=== PATIENT | female | born 1955 | race Caucasian/White ===

== ENCOUNTER 2018-12-18 10:27 | Observation (INO) | payer MEDICARE, OTHER ==
[~2018-12-18] VITALS: Ht 154.9 cm; Wt 72.6 kg
[2018-12-18] MEDS ORDERED: PANTOPRAZOLE SO40 MG PO (16:48)
[2018-12-18] MEDS ORDERED: LISINOPRIL20 MG PO (16:50)
[2018-12-18] MEDS ORDERED: PAROXETINE HCL30 MG PO (16:51)
[2018-12-18] MEDS ORDERED: LEVOTHYROXINE125 MCG PO (16:51)
[2018-12-18] MEDS ORDERED: BASAGLAR K100 UNIT/1 SUB-Q (16:52)
[2018-12-18] MEDS ORDERED: MULTI-DAY PLUS1 EACH PO (16:54)
[2018-12-18] MEDS ORDERED: BUSPIRONE HCL5 MG PO (16:55)
[2018-12-18] MEDS ORDERED: METFORMIN HCL1000 M1 PO (16:56)
[2018-12-18] MEDS ORDERED: DULCOLAX10 MG PR (16:59)
[2018-12-18] MEDS ORDERED: TYLENOL325 MG PO (16:59)
[2018-12-18] MEDS ORDERED: FLEET ENEMA133 ML PR (17:00)
[2018-12-18] MEDS ORDERED: MILK OF MA400 MG/5 M PO (17:01)
--- NOTE | 2018-12-18 17:15 | NUR ---
PT ADMITTED AT 1440 HAD ULTRA SOUND ON CAROTID AND ECHOCARDIO GRAM RIGHT AWAY. ASSESSMENT COMPLETE UNDERGARMENTS CHANGED H2O PROVIDED. PT SWALLOWING WITH NO COUGHING, CHOKING, OR OTHER S/S OF DYSFUNCTION. PT DENIES PAIN OR NEEDS OF. STATES SHE WILL USE THE CALL LIGHT WHEN ASKED WHAT SHE WILL DO IF SHE NEEDS TO GET UP. BED ALARM SET ANYWAY.
--- NOTE | 2018-12-18 17:30 | NUR ---
In and spoke with Libra, she resides at [facility] for [facility]. She has small facial droop on the L, but is able to move L side. States she does not walk and uses a WC as her "legs don't work". Describes full care of dressing and self care by care givers at [facility]. Plans on returning to [facility] ond dc as she states, "It is my home". States her spouse passed 5 years ago, mom lives in the area.
--- NOTE | 2018-12-18 17:34 | NUR ---
PATIENT RESTING IN BED. VITAL SIGNS AND I&O DONE. CALL LIGHT WITHIN REACH. NO OTHER NEEDS AT THIS TIME
--- NOTE | 2018-12-18 20:02 | EKG ---
[facility] [address] [facility] [place] [address] Signed Normal sinus rhythm Voltage criteria for left ventricular hypertrophy Possible Anteroseptal infarct Abnormal ECG No previous ECGs available Confirmed by YAN DOMINGO MD ([id number]) on 12/18/2018 8:02:04 PM Electronically Signed By: YAN DOMINGO MD 12/18/182001 PATIENT NAME: THERESA STRATTON SATHYA Electrocardiogram DATE OF : 51 PHYSICIAN: YAN DOMINGO MD REPORT #: [id number] REPORT IS CONFIDENTIAL AND NOT TO BE RELEASED WITHOUT AUTHORIZATION
--- NOTE | 2018-12-18 21:02 | NUR ---
ROUNDED CHARGE. PATIENT IS RESTING IN BED. VIRGIE MO RN PRESENT IN ROOM. PATIENT DENIES ANY COMMENTS, QUESTIONS OR CONCERNS. NO NEEDS NOTED. CALL LIGHT IN REACH.
--- NOTE | 2018-12-18 22:25 | NUR ---
PATIENT RESTING QUIETLY IN NO DISTRESS, IN BED WATCHING TV. PATIENT GOT A WARM BLANKET AND EVENING MEDS. PATIENT HAS NO QUESTIONS AND DENIES PAIN. WATER RESOURCES TECHNICAL OFFICER ON THE RIGHT SIDE SLIGHTLY DECREASED FROM LET. CALL LIGHT IN REACH AND NO OTHER NEEDS.
--- NOTE | 2018-12-18 22:45 | NUR ---
PATIENT RESTING QUIETLY IN BED WATCHING THE [employer] CHANNEL WITH THE LIGHTS OFF. PATIENT SAYS SHE IS DOING,"FINE." PATIENT HAD NO NEEDS OR WANTS AND CALL LIGHT IS IN REACH.
--- NOTE | 2018-12-19 00:54 | NUR ---
PATIENT RESTING QUIETLY, EYES CLOSED, AND RESPIRATIONS ARE REGULAR AND EVEN. SITTING IN SEMI-FOWLERS POSITION IN NO DISTRESS. CALL LIGHT IN REACH.
--- NOTE | 2018-12-19 02:36 | NUR ---
PATIENT REMAINS AWAKE WATCHING [employer] MOVIES ON [employer]ALL[employer]. PATIENT WAS UNAWARE SHE WAS WET, BUT HAD A LARGE URINARY INCONTINENCE. ATTENDS CHANGED AND CHUX PLACED UNDER PATIENT VITALS TAKEN. PATIENT HAVING NO PAIN. STRENGTH IS ALMOST EQUAL ON BOTH SIDES. PATIENT ANSWERING QUESTIONS APPROPRIATELY. CALL LIGHT IN REACH.
--- NOTE | 2018-12-19 03:27 | NUR ---
PATIENT ALERT AND ORIENTED AND JUST HELPED ME COMPLETE HER MRI CONSENT FORM FOR TOMORROW.
--- NOTE | 2018-12-19 04:51 | NUR ---
PATIENT HAS REMAINED AWAKE MOST OF THE NIGHT, PATIENT DOES HAVE CHRONIC WEAKNESS ON THE RIGHT, BUT SHE IS JUST BARELY WEAKER ON THE RT SIDE. STILL A LITTLE LEFT SIDED FACIAL DROOP, BUT IMPROVING. PATIENT HAS HAD ONE LARGE INCONTINENCE EPISODE FOR ME SO FAR THIS SHIFT. PATIENT HAS BEEN WATCHING [employer] MOVIES MOST THE NIGHT. CAT NAPPED A FEW TIMES. PATIENT HAS HAD NO SPEECH OR SWALLOWING PROBLEMS AND HAS BEEN ALERT AND ORIENTED. CALL LIGHT IS IN REACH.
--- NOTE | 2018-12-19 06:12 | NUR ---
PATIENT HAD ANOTHER LARGE EPISODE OF INCONTINENT URINE AND SHE COULD NOT TELL. CHUX, ATTENDS, GOWN, AND DRAW SHET CHANGED AFTER PATIENT CLEANED UP. PATIENT UNABLE TO GIVE A VOIDED SAMPLE FOR URINE YET. CALL LIGHT IN REACH.
--- NOTE | 2018-12-19 07:46 | NUR ---
0700: BEDSIDE REPORT RECEIVED FROM VIRGIE WHITESIDE. PT RESTING IN HER BED WITH NO COMPLAINT OF PAIN OR OTHER PROBLEMS. LEFT SIDED FACIAL DROOP REMAINS WITH THE VIRGIE STATES IS UNCHANGED. CALL LEAHY WITHIN REACH.
--- NOTE | 2018-12-19 09:36 | NUR ---
PT RESTING IN HER BED SITTING UP. SHE DENIES ANY PAIN OR PROBLEMS OTHER THAN THE LEFT SIDED FACIAL DROOP. SHE STATES THAT HER STRENGTH IS UNCHANGED BUT THAT SHE HAS BASELINE RIGHT SIDED WEAKNESS. SHE ALSO STATES SHE IS UNABLE TO WALK DUE TO HER RIGHT SIDED WEAKNESS SINCE JANUARY OF 2018 AND THAT IS WHY SHE LIVES A [facility]. SHE IS ORINETED TO PERSON AND PLACE BUT NOT DATE AND TIME, HER BED ALARM IS ON AND HER CALL LEAHY IS WITHIN REACH.
--- NOTE | 2018-12-19 10:22 | NUR ---
Pt working with OT at this time and she states she has no pain at this time.
--- NOTE | 2018-12-19 12:54 | NUR ---
PT EATING LUNCH SITTING UP HIGH IN HER BED. SHE DENIES ANY INCREASED WEAKNESS OR ANY TROUBLE EATING OR SWALLOWING. NEURO STATUS REMAINS UNCHANGED. BED ALARM IS ON AND CALL LEAHY WITHIN REACH.
--- NOTE | 2018-12-19 12:57 | NUR ---
PT GOING TO MRI AT THIS TIME.
--- NOTE | 2018-12-19 14:35 | NUR ---
PT IS BACK IN HER ROOM FOLLOWING HER MRI. SHE CONTINUES TO DENIE ANY PROBLEMS. TELE REPLACED AND IT IS RUNNING SR AT 84 HR. PT WAS INCONT OF URINE AND SHE WAS CLEANED UP, BARRIER CREAM APPLIED AND A FRESH ATTENDS WAS PLACED. CALL LEAHY WITHIN REACH.
[2018-12-19] MEDS ORDERED: VALTREX1000 MG PO (15:47)
[2018-12-19] MEDS ORDERED: ASPIRIN EC81 MG PO (15:48)
[2018-12-19] MEDS ORDERED: ONE TOUCH ULTR1 EACH VI (15:49)
[2018-12-19] MEDS ORDERED: BASAGLAR K100 UNIT/1 SUB-Q (15:50)
[2018-12-19] MEDS ORDERED: PREDNISONE20 MG PO (15:50)
[2018-12-19] MEDS ORDERED: HUMALOG100 UNITS/ SUB-Q (15:54)
[2018-12-19] MEDS ORDERED: ATORVASTATIN CA80 MG PO (15:55)
--- NOTE | 2018-12-19 16:11 | NUR ---
MEDICATIONS DUE. PT LEANING FAR TO RIGHT SIDE OF BED. PT REPOSITIONED AND PROPPED UP WITH PILLOWS. MEDICATIONS GIVEN ORDERED. PT DENIES ADDITIONAL REQUESTS OR COMPLAINTS AND VERBLAIZES UNDERSTANDING OF PLAN OF CARE AND DISCHARGE. NO ADDITONAL REQUESTS OR COMPLAINTS. CALL LIGHT WITHIN REACH.
--- NOTE | 2018-12-19 16:17 | NUR ---
Report called to Radha WHITESIDE at [facility].
--- NOTE | 2018-12-19 16:57 | NUR ---
REPORT GIVEN TO BRANDIE WHITESIDE.
--- NOTE | 2018-12-19 17:13 | NUR ---
Pt discharging to [facility]. H&P, orders, OT eval, ED note, progress notes faxed to Ju[facility]ino at [facility].
--- NOTE | 2018-12-19 17:15 | NUR ---
PATIENT CAME IN WITH LEFT SIDE FACIAL DROOP, INITTAL CT SCAN NEGATIVE. RUE WEAKNESS AT BASELINE. NEW ONSET LEFT SIDED DROOP. NIH STROKE SCORE 2; PATIENT HAS HISTORY OF FALLS, HYPERTENSION, TYPE TWO DM, DEPRESSION AND ANIXETY. ALERT TO SELF, PLACE AND SITUATION; ORINATED TO YEAR. NUREO CHECK, SLOW IN RESPONSE AND SPEECH; NEUROMUSCLETAL, STREGHTH WEAKER ON RUE. CARDIAC CHECK, SINUS RHYTHM, DISTANT SOUNDS. PATEINT VITALS REMAINED STABLE. PATIENT HAD ONE BIG SOFT/LOOSE BROWN, NORAML COLOR BOWL MOVEMENT AT 1200. INCON VOID 3X BEFORE DISCHARGE. ALL FOCUS ASSESEMENT, REMAINED THE SAME THROUGHT THE DAY. MRI CAME BACK NEGETIVE FOR STROKE, DOC RULES OUT STROKE AND DX PATIENT WITH LEAHY'S PALSY AND ORDER PATEINT PREDIOSONE BEFORE DISCHARGE. PATIENT DISCHARDED TO [facility]
--- NOTE | 2018-12-19 17:17 | NUR ---
PATIENT IN WHEELCHAIR VAN AND BEING TRANSPORTED TO [facility] AT 1710.
== END 2018-12-19 17:10 | disposition home or self-care (01) ==
LOC: ED 10:27 → MS 10:28
PROVIDERS: ADMIT Internal Medicine
DX: G51.0 Bell's palsy (principal); I10 Essential (primary) hypertension; E11.42 Type 2 diabetes mellitus with diabetic polyneuropathy; F32.9 Major depressive disorder, single episode, unspecified; E03.9 Hypothyroidism, unspecified; S82.001D Unspecified fracture of right patella, subsequent encounter for closed fracture with routine healing; K21.9 Gastro-esophageal reflux disease without esophagitis; Z74.01 Bed confinement status; Z66 Do not resuscitate; Z79.84 Long term (current) use of oral hypoglycemic drugs; Z79.899 Other long term (current) drug therapy; R47.81 Slurred speech
CPT/HCPCS: 70450; 70551; 71045; 80053; 80061; 83036; 84484; 85025; 85610; 85730; 92523; 93005; 93010; 93306; 93880; 96372; 97163; 97165; 99285-25; G0378; J1650; J1815; J7512

== ENCOUNTER 2024-04-19 08:11 | Inpatient (IN) | payer MEDICARE ==
[2024-04-19] VITALS (8 sets, daily range): BP systolic 104–123; BP diastolic 44–56
[~2024-04-19] VITALS: Ht 154.9 cm; Wt 71.8 kg
[~2024-04-19 08:11] MED LIST: ASPIRIN EC81 MG PO; ATORVASTATIN CA80 MG PO; BASAGLAR K100 UNIT/1 SUB-Q; BUSPIRONE HCL5 MG PO; DULCOLAX10 MG PR; FLEET ENEMA133 ML PR; HUMALOG100 UNITS/ SUB-Q; LEVOTHYROXINE150 MCG PO; LISINOPRIL20 MG PO; METFORMIN HCL1000 M1 PO; MILK OF MA400 MG/5 M PO; MULTI-DAY PLUS1 EACH PO; ONE TOUCH ULTR1 EACH VI; PANTOPRAZOLE SO40 MG PO; PAXIL40 MG PO; PREDNISONE20 MG PO; TYLENOL325 MG PO; VALTREX1000 MG PO
[2024-04-19] MEDS ORDERED: ondansetron HCL 4 MG/2 ML VIAL IV ONE ×2 (08:15→10:45)
[2024-04-19] MEDS ORDERED: PANTOPRAZOLE SODIUM 40 MG/10 ML VIAL IV ONE (08:15)
[2024-04-19 08:32] LABS: LYMPHOCYTES 3.4 % (24-44)
[2024-04-19 08:34] LABS: HEMATOCRIT 46.8 % (35.0-50.0); HEMOGLOBIN 15.5 g/dL (12.0-18.0); MCH 28.2 (27-36); MCHC 33.2 g/dl (30-36); MONOCYTES 2.9 % (0-12); NEUTROPHILS 93.7 % (39-80); PLATELET COUNT 276 K/uL (140-440); RBC 5.51 M/ul (4.3-5.7)
[2024-04-19] MEDS ORDERED: POTASSIUM CHLO10 ME1 PO (08:34)
[2024-04-19] MEDS ORDERED: JARDIANCE25 MG PO (08:34)
[2024-04-19 08:42] LABS: PARTIAL THROMBOPLASTIN TIME 27.7 Sec (22.9-41.3)
[2024-04-19 08:43] LABS: INR 1.2 (0.80-1.30); PROTIME 15.1 Sec (11.2-14.2)
[2024-04-19 08:51] LABS: ALBUMIN 3.3 g/dL (3.4-5.0); ALBUMIN/GLOBULIN RATIO 0.63 (1.1-2.4); ANION GAP 14.9 (7-21); BUN/CREATININE RATIO 15.64 (6.0-28.6); CALCIUM 9.7 mg/dL (8.5-10.1); CREATININE, SERUM 1.47 mg/dL (0.55-1.02); POTASSIUM 3.9 mmol/L (3.5-5.1); PROTEIN, TOTAL 8.5 g/dL (6.4-8.2)
[2024-04-19] MEDS ORDERED: SODIUM CHLORIDE 0.9% 1,000 ML IV ONE ×2 (09:00→09:30)
[2024-04-19 09:05] LABS: ABO B; ANTIBODY SCREEN NEGATIVE; RH POSITIVE
[2024-04-19] MEDS ORDERED: CEFTRIAXONE SODIUM 2 GM VIAL ONE (09:12)
[2024-04-19 09:14] LABS: LACTIC ACID, BLOOD 5.4 mmol/L (0.4-2.0)
[2024-04-19] MEDS ORDERED: CEFTRIAXONE SODIUM 2 GM in SODIUM CHLORIDE 0.9% 100 ML IV ONE (09:30)
[2024-04-19 10:26] LABS: BILIRUBIN, URINE NEGATIVE (negative); BLOOD/HGB, URINE LARGE (Negative); KETONE, URINE NEGATIVE (Negative); LEUK ESTERASE, URINE SMALL (negative); NITRITE, URINE POSITIVE (negative); PH, URINE 5.5 (5-7)
[2024-04-19 10:31] LABS: EPITHELIAL CELLS, URINE SQUAMOUS 1+ /lpf (0-1+)
[2024-04-19 10:32] LABS: BACTERIA, URINE 4+ /hpf (negative); CASTS, URINE NONE SEEN \\lpf; COLLECTION TYPE, URINE CATH; CRYSTALS, URINE NONE SEEN (0-1+); REFLEX CULTURE, URINE Yes (No); WHITE BLOOD CELLS, URINE 41-50 /HPF (0-5)
[2024-04-19] MEDS ORDERED: droPERidol 5 MG/2 ML VIAL IV ONE (11:30)
[2024-04-19] MEDS ORDERED: GLUCAGON,HUMAN RECOMBINANT 1 MG/ML VIAL SUB-Q PRN (11:45)
[2024-04-19] MEDS ORDERED: DEXTROSE 5% 1,000 ML IV PRN (11:45)
[2024-04-19] MEDS ORDERED: ACETAMINOPHEN 325 MG TAB PO PRN (11:45)
[2024-04-19] MEDS ORDERED: LACTATED RINGER'S 1,000 ML IV SCH (11:45)
[2024-04-19] MEDS ORDERED: IBLOOD GLUCOSE TEST STRIP 1 EA TEST XX PRN (11:45)
[2024-04-19] MEDS ORDERED: DEXTROSE 50% 50 ML SYR IV PRN ×2 (11:45)
[2024-04-19] MEDS ORDERED: ETOMIDATE 40 MG/20 ML VIAL ONE (11:51)
[2024-04-19] MEDS ORDERED: FAMOTIDINE 20 MG/ 2 ML VIAL ONE (11:58)
[2024-04-19] MEDS ORDERED: MIDAZOLAM HCL 2 MG/2 ML VIAL ONE (11:58)
[2024-04-19] MEDS ORDERED: DEXAMETHASONE SOD PHOS 4 MG/ML VIAL ONE (11:58)
[2024-04-19] MEDS ORDERED: fentaNYL citrate 100 MCG/2 ML VIAL ONE (11:58)
[2024-04-19] MEDS ORDERED: METOCLOPRAMIDE HCL 10 MG/2 ML SDV ONE (11:58)
[2024-04-19] MEDS ORDERED: ondansetron HCL 4 MG/2 ML VIAL ONE (11:58)
[2024-04-19] MEDS ORDERED: KETOROLAC TROMETHAMINE 30 MG/ML VIAL ONE (11:58)
[2024-04-19] MEDS ORDERED: POLYETHYLENE GLYCOL 3350 1 PACKET PO PRN (12:00)
[2024-04-19] MEDS ORDERED: IBLOOD GLUCOSE TEST STRIP 1 EA TEST VI SCH (12:00)
[2024-04-19] MEDS ORDERED: INSULIN LISPRO 100 UNIT/ML ML SUB-Q SCH (12:00)
[2024-04-19] MEDS ORDERED: PHARMACY RENAL DOSE ADJUSTMENT 1 DOSE MISC PO SCH (12:00)
[2024-04-19] MEDS ORDERED: SUCCINYLCHOLINE IN 0.9% NACL 200 MG/10 ML SYRINGE ONE (12:03)
[2024-04-19] MEDS ORDERED: SEVOFLURANE 250 ML BTL INH ONE (13:50)
[2024-04-19] MEDS ORDERED: NALOXONE HCL 0.4 MG SYR IV PRN (14:00)
[2024-04-19] MEDS ORDERED: fentaNYL citrate 50 MCG/ML SDV IV PRN (14:00)
[2024-04-19] MEDS ORDERED: droPERidol 5 MG/2 ML VIAL IV PRN (14:00)
[2024-04-19] MEDS ORDERED: IBLOOD GLUCOSE TEST STRIP 1 EA TEST VI PRN (14:00)
[2024-04-19] MEDS ORDERED: ondansetron HCL 4 MG/2 ML VIAL IV PRN (14:00)
[2024-04-19] MEDS ORDERED: PROCHLORPERAZINE EDISYLATE 10 MG/2 ML VIAL IV PRN (14:00)
[2024-04-19] MEDS ORDERED: METOCLOPRAMIDE HCL 10 MG/2 ML SDV IV PRN (14:00)
--- NOTE | 2024-04-19 14:12 | NUR ---
04/19/24 1412 JOSE GROSS 1351 PT ARRIVED TO PACU VIA STREACHER FROM OR. PT NON RESPONSIVE TO STIMULI. PT HAS NATURAL AIRWAY AND A MASK WITH 6L OF OXYGEN INFUSION. PT OXYGEN AT 100% O2 SAT. PT HAS 20 G IV IN LEFT AC RUNNING LR CONTINUOUSLY. PT HAS 16 F [address], DRAINING DARK ORANGE URINE. REPORT TAKEN FROM JARRETT MACHUCA. ALL MONTIORS ATTACHED. 1355 BLOOD GLUCOSE TAKEN AND READS 160. LIME VAT TENDER NOTIFIED. PT RESPONSIVE TO VERBAL STIMULI. PT ABLE TO GIVE ME LAST NAME. WHEN ASKED IF PT HAS PAIN, PT SHAKES HEAD BACK AND FORTH FOR NO. PT ALSO REPORTS NO NAUSEA. 1405 PT OXGYEN MASK REMOVED, PT REMAINS ABOVE 90% ON ROOM AIR.
--- NOTE | 2024-04-19 14:15 | NUR ---
PT ARRIVED TO MS ROOM 120 FROM PACU. PT DROWSY, AROUSABLE. ABLE TO VERIFY NAME BUT NOT ORIENTED TO PLACE AND DATE. PT UNABLE TO VERBALIZE ADMISSION QUESTIONS. WHEN ASKED IF ANY PAIN PT SHOOK HEAD NO AND WENT BACK TO SLEEP. CPOX IN PLACE. SCDS ON. BED ALARM ON FOR PT SAFETY. CALL LIGHT IN REACH.
--- NOTE | 2024-04-19 16:14 | NUR ---
PT RESTS IN BED WITH EYES CLOSED, RESP EVEN AND UNLABORED. PT ROUSES EASILY TO VOICE, DENIES PAIN OR DISCOMFORT AT THIS TIME. CPOX IN PLACE, SPO2 92% ON RA. VSS. SCD'S IN PLACE TO BLE. JUSTIN CATHETER DRAINS CLEAR YELLOW URINE TO GRAVITY.
[2024-04-19] MEDS ORDERED: PROBIOTIC1 EAC1 PO (16:35)
[2024-04-19] MEDS ORDERED: ATORVASTATIN CA40 MG PO (16:36)
[2024-04-19] MEDS ORDERED: GLIPIZIDE ER10 MG PO (16:37)
[2024-04-19] MEDS ORDERED: LOSARTAN POTAS100 MG PO (16:38)
[2024-04-19] MEDS ORDERED: MELATONIN3 MG PO (16:39)
[2024-04-19] MEDS ORDERED: PEPCID20 MG PO (16:42)
[2024-04-19] MEDS ORDERED: LOPERAMIDE2 M1 PO (16:48)
[2024-04-19] MEDS ORDERED: MIRALAX119 GM PO (16:49)
--- NOTE | 2024-04-19 16:52 | NUR ---
MED REC COMPLETE
[2024-04-19] MEDS ORDERED: ATORVASTATIN 40 MG TAB PO SCH (17:00)
--- NOTE | 2024-04-19 17:30 | NUR ---
IN ROOM, PT IS SITTING UP IN BED, AWAKE, ALERT EATING DINNER. PT DENIES DISCOMFORT. PT REMAINS ORIENTED TO SELF, BUT UNABLE TO VERBALIZE WHERE SHE IS AND WHY. REORIENTED PATIENT. CALL LIGHT IN REACH. BED ALARM ON FOR SAFETY.
--- NOTE | 2024-04-19 18:01 | NUR ---
PATIENT IN BED AT THIS TIME. URGENT CARE PHYSICIAN ASSISTANT CHARTED I&O'S. RN CHARTED VITALS. CALL LIGHT WITHIN REACH, NO FURTHER NEEDS.
--- NOTE | 2024-04-19 20:14 | NUR ---
PT DROWSY, AWAKENS EASILY, ON ROOM AIR, CPOX POST OP AT BEDSIDE. ABD LARGE DOFT, MELONY, F/C PATENT. PT NONVERBAL AT THIS TIME, JUST NODS WHEN ASKED YES NO QUESTIONS. SCDS IN PLACE, ELEVATED IN PILLOWS, REPOSITIONED IN BED. MEDICATED WITH TYLENOL PER C/O ABD PAIN. IVF INFUSING LAC W/O PROBLEMS. BED ALRM IN PLACE.
--- NOTE | 2024-04-19 20:50 | NUR ---
DR BRAND CALLED RN STATION. THIS RN ASKED IF MD WANTED TO REPEAT LACTIC, TELEPHONE ORDER READ BACK FOR LACTIC REDRAW FOR NOW, NO NEED TO CALL MD W/ RESULTS UNLESS THEY ARE TRENDING UP. MD VERBALIZES HE FEELS THEY KNOW SOURCE OF INFECTION AND pt WENT TO OR TODAY FOR STENT PLACEMENT. ORDER PLACED AND PRIMARY RN UPDATED.
--- NOTE | 2024-04-19 20:54 | NUR ---
THERESA IS ASLEEP IN BED ON ROOM AIR W/HOB ELEVATED.
[2024-04-19] MEDS ORDERED: busPIRone HCL 5 MG TAB PO SCH (21:00)
--- NOTE | 2024-04-19 23:49 | NUR ---
OPENS EYES, GOES BACK TO SLEEP, IVF INFUSING, F/C PATENT, SCDS IN PLACE
[2024-04-20] VITALS (12 sets, daily range): BP systolic 110–176; BP diastolic 41–76
[2024-04-20 00:40] LABS: LACTIC ACID, BLOOD 1.8 mmol/L (0.4-2.0)
--- NOTE | 2024-04-20 02:37 | NUR ---
Resting, eyes closed, opens eyes when asked, aware of place, situation but not town. pleasnt, cooperative. On room air, cpox post op at bedside, f/c patent draining medium colored yellow urine, no c/o abd pain. no bm, attends in place, IVf infusing w/o problems, scds in place, FOB elevated, tolerating sips of fluids, Bed alrm on per safety fall precautions, helped with repositioning
--- NOTE | 2024-04-20 05:15 | NUR ---
awakens easily, cooperative with vitals, repositioned with pillows, smiling. denies c/o pain. took sips of fluids. IVF infusing w/o problems. scds inplace, f/c patent draining small amount of dark yellow urine QS. On room air
[2024-04-20 05:33] LABS: HEMATOCRIT 32.9 % (35.0-50.0); LYMPHOCYTES 7.5 % (24-44); MCH 28.2 (27-36); MCHC 33.5 g/dl (30-36); MCV 84.2 fl (81-99); MONOCYTES 5.9 % (0-12); NEUTROPHILS 86.6 % (39-80); PLATELET COUNT 166 K/uL (140-440); RBC 3.91 M/ul (4.3-5.7); RDW 16.9 (10.5-15.0)
[2024-04-20 05:50] LABS: ALBUMIN 2.1 g/dL (3.4-5.0); ALBUMIN/GLOBULIN RATIO 0.57 (1.1-2.4); ANION GAP 10.7 (7-21); BILIRUBIN, TOTAL 0.8 mg/dL (0.2-1.0); BUN/CREATININE RATIO 21.92 (6.0-28.6); CALCIUM 8.6 mg/dL (8.5-10.1); CREATININE, SERUM 1.14 mg/dL (0.55-1.02); MAGNESIUM 1.7 mg/dL (1.8-2.4); PHOSPHORUS, INORGANIC 3.3 mg/dL (2.5-4.9); POTASSIUM 3.7 mmol/L (3.5-5.1); PROTEIN, TOTAL 5.8 g/dL (6.4-8.2)
[2024-04-20] MEDS ORDERED: LEVOTHYROXINE SODIUM 150 MCG TAB PO SCH (07:00)
--- NOTE | 2024-04-20 07:26 | NUR ---
RECIEVED SHIFT REPORT. PT IS RESTING IN BED, EYES CLOSED. BREATHING EVEN AND UNLABORED. CALL LIGHT IN REACH. CPOX ON, SPO2 93% ON RA.
[2024-04-20] MEDS ORDERED: CEFTRIAXONE SODIUM 2 GM VIAL ONE (08:16)
--- NOTE | 2024-04-20 08:43 | NUR ---
MORNING ASSESSMENT COMPLETE. IS UP IN BED, SET UP FOR BREAKFAST. DENIES DISCOMFORT AT THIS TIME. ALERT. REMAINS ORIENTED TO SELF AND DOG. CALL LIGHT IN REACH.
[2024-04-20] MEDS ORDERED: PANTOPRAZOLE SODIUM 40 MG/10 ML VIAL IV SCH (09:00)
[2024-04-20] MEDS ORDERED: MAGNESIUM OXIDE 400 MG TABLET PO ONE (09:00)
[2024-04-20] MEDS ORDERED: CEFTRIAXONE SODIUM 2 GM in SODIUM CHLORIDE 0.9% 100 ML IV SCH (09:00)
[2024-04-20] MEDS ORDERED: PARoxetine HCL 20 MG TAB PO SCH (09:00)
--- NOTE | 2024-04-20 10:21 | NUR ---
PATIENT SITTING UP IN BED WATCHING TV. VITALS AND I&O'S DONE AND CHARTED. JUSTIN CARE DONE. CALL LIGHT IN REACH. NO FURTHER NEEDS AT THIS TIME.
--- NOTE | 2024-04-20 12:00 | NUR ---
PT BOOSTED BY THIS RN AND EZRA TAYLOR FOR LUNCH. CALL LIGHT IN REACH.
[2024-04-20 13:18] LABS: BASOPHILS 0.1 % (0-2); EOSINOPHILS 0.1 % (0-6); HEMATOCRIT 31.8 % (35.0-50.0); HEMOGLOBIN 10.7 g/dL (12.0-18.0); LYMPHOCYTES 11.5 % (24-44); MCH 28.1 (27-36); MCHC 33.6 g/dl (30-36); MCV 83.7 fl (81-99); MONOCYTES 6.6 % (0-12); NEUTROPHILS 81.7 % (39-80); PLATELET COUNT 168 K/uL (140-440)
--- NOTE | 2024-04-20 14:28 | NUR ---
PATIENT HAD SMALL BM AND INCONT. VOID. KOKO CARE. NEW ATTENDS IN PLACE. RN IN ROOM TO ASSIST. NEW PURE WICK PLACED. VITALS AND I&O'S DONE AND CHARTED. CALL LIGHT IN REACH. NO FURTHER NEEDS AT THIS TIME.
--- NOTE | 2024-04-20 14:30 | NUR ---
WHILE CHANGING PT, ALLEVYN ON COCCYX WAS REMOVED. DIME SIZE BED SORE NOTED, BLANCHABLE. ALLEVYN APPLIED.
--- NOTE | 2024-04-20 16:00 | NUR ---
PT AWAKE IN BED, WATCHING TV. CALL LIGHT IN REACH. PT DENIES ANY NEEDS.
--- NOTE | 2024-04-20 18:14 | NUR ---
PT EATING DINNER IN BED, DENIES NEEDS. SATISFIED WITH MEAL. CALL LIGHT IN REACH
--- NOTE | 2024-04-20 18:34 | NUR ---
PATIENT SITTING UP IN BED WATCHING TV. VITALS AND I&O'S DONE AND CHARTED. RN NOTIFIED OF BP. FRESH WATER GIVEN. CALL LIGHT IN REACH. NO FURTHER NEEDS AT THIS TIME.
[2024-04-20] MEDS ORDERED: LOSARTAN POTASSIUM 100 MG TAB PO SCH (19:00)
--- NOTE | 2024-04-20 19:27 | NUR ---
Awake, pleasant, talking, aware of self, situation, place and general date in bed, IVF infusing w/o problems
--- NOTE | 2024-04-20 19:45 | NUR ---
cozaar first dose given as scheduled. denies c/o or s/sx HTN, SBP 170's at thist sandhya.
--- NOTE | 2024-04-20 21:06 | NUR ---
pt awake, alert to self, place and situation only. talkative, follows instructions well, cooperative with instructions. On room air, lungs clear bilat, no cough, abd soft, roberta, LBM this am. purewick changed. draining cloudy colored large amounts of urine. scds in place edema trace ankles, elevated. turned and repositioned. CBG 151 received 1 unit SSI cooperative
--- NOTE | 2024-04-21 00:30 | NUR ---
RSATING, EYES CLOSE, NO S/SX DISTRESS, ON ROOM AIR, PUREWICK IN PLACE. IVF INFUSING W/O PROBLEMS
--- NOTE | 2024-04-21 02:23 | NUR ---
pt awake, watchingt v. pure wick in place draining large amount of cloudy urine plus incontinent of very large amount of urine in attends, Bed linen and gown changed. skin care, pt cooperative. IVF infusing w/o problems, scds in place
[2024-04-21 04:39] VITALS: BP 171/69
[2024-04-21 04:41] VITALS: BP 171/69
--- NOTE | 2024-04-21 04:57 | NUR ---
awake, pure wick in place plus she was incontinent of large amount of urine in attends and pads. skin care done, attends, gown and sheet changed. on room air, IVF infusing w/o problems, no c/o pain. scds in place, LE elevated with pillows, turned and repositoned, all cares explained, alert and oriented at this time. pleasant and cooperative
[2024-04-21 05:43] LABS: BASOPHILS 0.2 % (0-2); EOSINOPHILS 0.4 % (0-6); HEMATOCRIT 34.7 % (35.0-50.0); HEMOGLOBIN 11.7 g/dL (12.0-18.0); LYMPHOCYTES 13.5 % (24-44); MCH 28.1 (27-36); MCHC 33.6 g/dl (30-36); MCV 83.7 fl (81-99); MONOCYTES 7.4 % (0-12); NEUTROPHILS 78.5 % (39-80); PLATELET COUNT 174 K/uL (140-440); RBC 4.15 M/ul (4.3-5.7); RDW 16.9 (10.5-15.0)
[2024-04-21 05:53] LABS: ANION GAP 12.2 (7-21); BUN/CREATININE RATIO 26.98 (6.0-28.6); CALCIUM 8.4 mg/dL (8.5-10.1); CREATININE, SERUM 0.63 mg/dL (0.55-1.02); MAGNESIUM 1.5 mg/dL (1.8-2.4); POTASSIUM 3.2 mmol/L (3.5-5.1)
--- NOTE | 2024-04-21 06:50 | NUR ---
resting. eyes open, no c/o pain. pure wick in place. repositioned. scds in place
--- NOTE | 2024-04-21 07:38 | NUR ---
REPORT FROM MIESHA COSTA.
[2024-04-21] MEDS ORDERED: POTASSIUM CHLORIDE 10 MEQ TABCR PO ONE (08:15)
[2024-04-21] MEDS ORDERED: POTASSIUM CHLORIDE 40 MEQ,LIDOCAINE HCL 1% 40 MG in DEXTROSE 5% 250 ML IV ONE (08:15)
[2024-04-21] MEDS ORDERED: CEFTRIAXONE SODIUM 2 GM VIAL ONE (08:33)
[2024-04-21] MEDS ORDERED: MAGNESIUM SULFATE 2 GM/50 ML BAG IV ONE (09:00)
[2024-04-21] MEDS ORDERED: AMLODIPINE BESYLATE 5 MG TAB PO SCH (09:00)
[2024-04-21] MEDS ORDERED: lisinopriL 20 MG TAB PO SCH (09:00)
--- NOTE | 2024-04-21 09:03 | NUR ---
MORNING ASSESSMENT IS COMPLETE. MORNING MEDICATION GIVEN. IV ROCEPHIN NOW, IV MAG AND POTASSIUM TO FOLLOW. PATIENT IS RESTING IN BED, DENIES PAIN OR NAUSEA. PATIENT ATE 100% OF BREAKFAST. OT TO WORK WITH PATIENT TODAY. DR. BRAND IN TO SEE PATIENT, PATIENT TO RETURN TO [facility] TODAY AFTER INFUSIONS ARE COMPLETE. NO OTHER NEEDS AT THIS TIME.
[2024-04-21 09:09] VITALS: BP 162/79
--- NOTE | 2024-04-21 09:23 | NUR ---
UR CLINICAL REVIEW: 2 MN FOR [facility]-PER SENIOR FIELD SERVICE ENGINEER MEETS INPT FOR OBSTRUCTIVE PYELONEPHRITIS MEDICARE INPT 04/19/24 @ 1147 ORDER MATCHES REG NO AUTH REQUIRED PER MEDICARE GUIDELINES DISCHARGE TO HOME ANTICAPATED FOR TODAY.
[2024-04-21 09:30] VITALS: BP 157/66
[2024-04-21] MEDS ORDERED: AMLODIPINE BESYL5 MG PO (09:48)
[2024-04-21] MEDS ORDERED: LEVOFLOXACIN750 MG PO (09:49)
--- NOTE | 2024-04-21 10:00 | NUR ---
Attempted to speak with Judi. She has significant dementia and struggles to answer questions. States, "I don't know", frequently. I called and with cg at [facility]. 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 She is bedbound and has had dementia for a lengthy time. UPdated, per our 8:30 meeting pt will be dischargeable today. I have faxed the chart to [facility] in [place] who covers their admissions. Dr. Rangel is working on orders and I will fax the orders and PASRR soon. Pt is receiving IV medication that will finish around 2 pm and pt will be ready to return at that time.
--- NOTE | 2024-04-21 10:20 | NUR ---
Orders and PASRR faxed to [facility] in [place].
--- NOTE | 2024-04-21 10:31 | NUR ---
PATIENT IS RESTING IN BED, DENIES NEEDS.
--- NOTE | 2024-04-21 12:50 | NUR ---
Spoke with pts nurse. IVs are complete. Called and spoke with Margret at EMS. Requested transport by EMS to return pt to [facility] as pt is bedbound and is unsafe to ride in a [facility] van.
--- NOTE | 2024-04-21 12:57 | NUR ---
PATIENT GIVEN 5 UNITS OF INSULIN FOR BG OF 238. IV PUMP CLEARED. PATIENT IS RESTING COMFORTABLY IN BED.
[2024-04-21 13:09] VITALS: BP 170/70
--- NOTE | 2024-04-21 13:27 | NUR ---
LEFT A/C IV D/C'S WITH CATHETER INTACT. ATTEMPTED TO CALL AND GIVE REPORT AT [facility]. PATIENT TRANSPORTED VIA EMS TO [facility].
== END 2024-04-21 13:35 | disposition home or self-care (01) | DRG 854 ==
LOC: ED 08:11 → MS 11:53
PROVIDERS: Emergency Medicine; ADMIT Student in an Organized Health Care Education/Training Program; ATTEND Urology
PROC: 3E03329 Introduction of Other Anti-infective into Peripheral Vein, Percutaneous Approach (ICD-10-PCS; 2024-04-19)
PROC: 0T768DZ Dilation of Right Ureter with Intraluminal Device, Via Natural or Artificial Opening Endoscopic (ICD-10-PCS; principal; 2024-04-19 12:30)
DX: A41.9 Sepsis, unspecified organism (principal); F03.94 Unspecified dementia, unspecified severity, with anxiety; N10 Acute pyelonephritis; N20.1 Calculus of ureter; N17.9 Acute kidney failure, unspecified; Z66 Do not resuscitate; R65.20 Severe sepsis without septic shock; K56.41 Fecal impaction; N13.9 Obstructive and reflux uropathy, unspecified; K21.9 Gastro-esophageal reflux disease without esophagitis; E03.9 Hypothyroidism, unspecified; R11.10 Vomiting, unspecified; F31.9 Bipolar disorder, unspecified; E11.51 Type 2 diabetes mellitus with diabetic peripheral angiopathy without gangrene; E78.00 Pure hypercholesterolemia, unspecified; D64.9 Anemia, unspecified; F43.10 Post-traumatic stress disorder, unspecified; Z79.890 Hormone replacement therapy; Z79.899 Other long term (current) drug therapy; Z79.84 Long term (current) use of oral hypoglycemic drugs; Z79.82 Long term (current) use of aspirin; Z79.4 Long term (current) use of insulin; Z98.51 Tubal ligation status
CPT/HCPCS: 36415; 71045; 74174; 74175; 74177; 74430; 80048; 80053; 81001; 83605; 83735; 84100; 85025; 85060; 85610; 85730; 86850; 86900; 86901; 87040; 87088; 94762; A9270; C1769; C2617; J0330; J0696; J1100; J1790; J1815; J1885; J2250; J2405; J2470; J2765; J3010; J3475; J3480; J3490; J7030; J7060; J7121; Q9967

== ENCOUNTER 2024-05-22 05:48 | Day surgery (SDC) | payer MEDICARE, OTHER ==
[2024-05-15 15:25] VITALS: BP 117/67
--- NOTE | 2024-05-19 10:06 | NUR ---
PRE OP LABS AND EKG REVIEWED BY DR REDDY. SHE SAID TO PROCEED WITH SURGERY PLANNED. ASKED ANESTHESIA TO REVIEW EKG.
[~2024-05-22] VITALS: Ht 154.9 cm; Wt 66.8 kg
[~2024-05-22 05:48] MED LIST changes: +AMLODIPINE BESYL5 MG PO; +ATORVASTATIN CA40 MG PO; +GLIPIZIDE ER10 MG PO; +GLUCAGON EMERGEN1 MG INJ; +JARDIANCE25 MG PO; +LACTATED RINGER'S 1,000 ML IV SCH; +LANTUS100 UNITS/ SUB-Q; +LEVOFLOXACIN750 MG PO; +LOPERAMIDE2 M1 PO; +LOSARTAN POTAS100 MG PO; +MELATONIN3 MG PO; +MIRALAX119 GM PO; +PEPCID20 MG PO; +POTASSIUM CHLO10 ME1 PO; +PROBIOTIC1 EAC1 PO
[2024-05-22 06:28] VITALS: BP 138/64
[2024-05-22] MEDS ORDERED: ACIDOPHILUS1 EACH PO (06:34)
[2024-05-22] MEDS ORDERED: IBLOOD GLUCOSE TEST STRIP 1 EA TEST VI PRN ×2 (07:00→08:15)
[2024-05-22] MEDS ORDERED: LIDOCAINE HCL 1% 5 ML SDV INJ ONE (07:00)
[2024-05-22] MEDS ORDERED: CEFTRIAXONE SODIUM 1 GM in SODIUM CHLORIDE 0.9% 100 ML IV SCH (07:00)
[2024-05-22] MEDS ORDERED: DEXAMETHASONE SOD PHOS 4 MG/ML VIAL ONE (07:24)
[2024-05-22] MEDS ORDERED: propofoL 200 MG/20 ML VIAL ONE (07:25)
[2024-05-22] MEDS ORDERED: ACETAMINOPHEN 1,000 MG/100 ML VIAL ONE (07:25)
[2024-05-22] MEDS ORDERED: LIDOCAINE HCL 2% 5 ML SDV ONE (07:25)
[2024-05-22] MEDS ORDERED: fentaNYL citrate 100 MCG/2 ML VIAL ONE (07:25)
[2024-05-22] MEDS ORDERED: ondansetron HCL 4 MG/2 ML VIAL ONE (07:25)
--- NOTE | 2024-05-22 07:32 | NUR ---
VISITED DURING SPIRITUAL CARE ROUNDS. PT APPEARED TO BE SLEEPING. DID NOT DISTURB. PROVIDED PRAYER.
[2024-05-22] MEDS ORDERED: TRAMADOL HCL 50 MG TAB PO PRN (07:45)
[2024-05-22] MEDS ORDERED: MORPHINE SULFATE 4 MG/ML VIAL IV PRN (07:45)
[2024-05-22] MEDS ORDERED: ondansetron HCL 4 MG/2 ML VIAL IV PRN ×2 (07:45→08:15)
[2024-05-22] MEDS ORDERED: ePHEDrine sulfate 50 MG/ML AMP ONE (07:50)
[2024-05-22] MEDS ORDERED: HYDROmorphone HCL 1 MG/ML SYR IV PRN (08:15)
[2024-05-22] MEDS ORDERED: fentaNYL citrate 50 MCG/ML SDV IV PRN (08:15)
[2024-05-22] MEDS ORDERED: droPERidol 5 MG/2 ML VIAL IV PRN (08:15)
[2024-05-22] MEDS ORDERED: NALOXONE HCL 0.4 MG SYR IV PRN (08:15)
[2024-05-22] MEDS ORDERED: PROCHLORPERAZINE EDISYLATE 10 MG/2 ML VIAL IV PRN (08:15)
--- NOTE | 2024-05-22 10:14 | NUR ---
05/22/24 1014 Maria Khan 1003-PT ARRIVES TO PACU VIA STRETCHER, RESTING SEMI FOWLERS, NOT RESPONISVE TO TACTILE OR VERBAL STIMULI, RESTING W/ EYES CLOSED, VSS ON 6L VIA MASK, RR EVEN AND UNLABORED. 1005-BEDSIDE CBG 204, ARCHIVIST MILITARY HISTORY NOTIFIED. 1012-PT AWAKENS ON OWN, TITRATED TO RA, DENIES PAIN OR NAUSEA.
[2024-05-22 10:35] VITALS: BP 127/54
--- NOTE | 2024-05-22 10:35 | NUR ---
PT ARRIVED BACK TO [facility] ALERT AND ORIENTED PER BASELINE. REPORT RECEIVED FROM CLASSIFICATION INSPECTOR. VS TAKEN. IV SITE ASSESSED AND NOTED TO BE SL'D. URETHRA VISUALIZED AND NO DRAINAGE OR BLEEDING OBSERVED. PT DENIES BOTH PAIN AND NAUSEA WHEN ASKED. CALL LIGHT WITHIN PT REACH. BED IN LOW POSITION, WHEELS LOCKED, BILAT RAILS IN PLACE. ALL QUESTIONS ANSWERED. PT GIVEN PUDDING AND ICE WATER. HOB ELEVATED TO APPROX 45-60 DEGREES TO FACILITATE EATING AND DRINKING. SPOKE WITH DR. REDDY, NO URINE CRITERIA REQUIRED TO BE MET BEFORE DISCHARGE D/T INCONTINENCE AT BASELINE.
[2024-05-22 11:35] VITALS: BP 105/48
--- NOTE | 2024-05-22 11:35 | NUR ---
INTO PTS ROOM FOR ROUTINE REASSESSMENT. VS TAKEN. IV SITE ASSESSED. SURGICAL SITE VISUALIZED, NO BLEEDING/DRAINAGE NOTED FROM URETHRA. PT CONT TO DENY PAIN OR NAUSEA. PT HAS TOLERATED PO FOOD AND FLUIDS W/O ISSUES NOTED/REPORTED. ICE WATER INTAKE ENCOURAGED. BED REMAINS IN LOW POSITION, WHEELS LOCKED, BILAT RAILS IN PLACE, AND CALL LIGHT WITHIN PT REACH. ALL QUESTIONS ANSWERED.
[2024-05-22] MEDS ORDERED: CIPRO500 MG PO (12:14)
[2024-05-22] MEDS ORDERED: TRAMADOL HCL50 MG PO (12:15)
--- NOTE | 2024-05-22 12:30 | NUR ---
1210 IV REMOVED FOR DISCHARGE BACK TO [facility] SNF. TIP APPEARS INTACT. PRESSURE DRSG APPLIED WITH GAUZE AND COBAN. PT WITH KOKO-CARE PROVIDED AND NEW ATTENDS PLACED. SMALL AMT OF URINE NOTED ON CHUX PAD. PT IS INCONTINENT OF B&B AT BASELINE. PT ASSISTED WITH DRESSING AND HER FACILITIES TALA SLING WAS PLACED BACK UNDER HER FOR TRANSFER BACK TO . 1225-PT REPORTED FEELING NAUSEATED AFTER ROLLING FOR CARES AND PLACEMENT OF TALA SLING. EMESIS BAG PROVIDED AND PT PROCEEDED TO VOMITT APPROX 350 ML. PT ON R SIDE WITH HOB ELEVATED TO APPROX 40 DEGREES TO PREVENT ASPIRATION. 1230-SPOKE WITH DR. REDDY AND RECEIVED VERBAL ORDER FOR 4MG ZOFRAN ODT SL ONCE. ORDER ENTERED.
[2024-05-22 12:35] VITALS: BP 137/45
--- NOTE | 2024-05-22 12:38 | NUR ---
ZOFRAN GIVEN PER EMAR FOR EPISODE OF NAUSEA W/VOMITTING. ROUTINE REASSESSMENT COMPLETED. VS TAKEN. URETHRA WAS VISUALIZED. NO BLEEDING OR DRAINAGE NOTED. PT DENIES PAIN WHEN ASKED. ICE WATER REFILLED AND ENCOURAGED. PT PROVIDED WITH COOL AIR TO HELP WITH NAUSEA WELL. ALL QUESTIONS ANSWERED. CALL LIGHT WITHIN PT REACH. BED IN LOW POSITION, WHEELS LOCKED, BILAT RAILS IN PLACE.
[2024-05-22] MEDS ORDERED: ONDANSETRON 4 MG TAB ODT SL ONE (12:45)
--- NOTE | 2024-05-22 12:55 | NUR ---
RECEIVED CALL FROM FACILITY STAFF INQUIRING WHEN PT WILL BE READY FOR TRASNPORT BACK TO FACILITY. PROVIDED UPDATE WITH APPROX TIME OF 20-30 MINS DEPENDING ON RESOLUTION OF NAUSEA.
--- NOTE | 2024-05-22 13:00 | NUR ---
INTO PT ROOM TO EVALUATE EFFECTIVENESS OF ZOFRAN FOR RELIEF OF NAUSEA. PT REPORTS NO FURTHER NAUSEA OR EPISODES OF VOMITTING. ZOFRAN APPEARS EFFECTIVE IN PROVIDING PT RELIEF. PT WAS NOTED TO HAVE SLIGHT SHAKE TO HANDS. DENIES FEELING COLD. CBG CHECKED D/T DM DX. CBG 242. CLOSE TO PTS BASELINE CBG UPON ARRIVAL TODAY. DISCHARGE EDUCATION COMPLETED WITH PT. PT DENIES ANY QUESTIONS. ALL DC EDUCATION PRINTED AND PROVIDED ALONG WITH FACILITY FORM COMPLETED BY DR. REDDY REGARDING CARE GIVEN TODAY AND UPCOMING CARE NEEDED. HARD COPY RX ALSO PROVIDED TO PT IN PACKET FOR DISCHARGE BACK TO [facility].
--- NOTE | 2024-05-22 13:15 | NUR ---
[facility] FACILITY STAFF, SARITA, ARRIVED. DISCHARGE PACKET PROVIDED TO STAFF. PT TRANSFERRED FROM [facility] TO WITH 3 PERSON ASSIST. ALL QUESTIONS ANSWERED.
--- NOTE | 2024-05-22 13:20 | NUR ---
PT DISCHARGED FROM [facility] VIA PERSONAL WC, PROPELLED BY [facility] MATCH UP WORKER STAFF, TO TRANSPORT VAN. ALL PERSONAL BELONGINGS TAKEN WITH PT.
[2024-05-22] MEDS ORDERED: SEVOFLURANE 250 ML BTL INH ONE (15:17)
[2024-05-25 08:43] LABS: CALCULI MASS 572 mg (())
== END 2024-05-22 13:20 | disposition home or self-care (01) ==
LOC: DS 05:48 → OPS 05:48 → DS 07:30 → OPS 07:30
PROVIDERS: ATTEND Urology
DX: N20.2 Calculus of kidney with calculus of ureter (principal); N39.42 Incontinence without sensory awareness; I10 Essential (primary) hypertension; E78.5 Hyperlipidemia, unspecified; E11.9 Type 2 diabetes mellitus without complications; K21.9 Gastro-esophageal reflux disease without esophagitis; Z88.8 Allergy status to other drugs, medicaments and biological substances; Z79.890 Hormone replacement therapy; Z79.4 Long term (current) use of insulin; Z79.899 Other long term (current) drug therapy
CPT/HCPCS: 00910; 74420; 82365; 87070; 87075; 87077; 87088; 87205; A9270; C1758; C1769; C2617; J0131; J0696; J1100; J2003; J2405; J2704; J3010; J7121; Q9967

== ENCOUNTER → 2024-06-24 | Day surgery (SDC) | payer MEDICARE, OTHER ==
[~2024-06-24] MED LIST changes: +ACIDOPHILUS1 EACH PO; +CIPRO500 MG PO; -LACTATED RINGER'S 1,000 ML IV SCH; +LIDOCAINE 2% VISCOUS 11 ML SYR ONE; +MICAFUNGIN100 MG IV; +TRAMADOL HCL50 MG PO
== END ==
LOC: OPV-DS 08:46
PROVIDERS: ATTEND Urology
DX: N39.42 Incontinence without sensory awareness (principal); N20.0 Calculus of kidney; N20.1 Calculus of ureter; E78.5 Hyperlipidemia, unspecified; F31.9 Bipolar disorder, unspecified; F43.10 Post-traumatic stress disorder, unspecified; E03.9 Hypothyroidism, unspecified; I10 Essential (primary) hypertension; E11.9 Type 2 diabetes mellitus without complications; K21.9 Gastro-esophageal reflux disease without esophagitis; Z79.899 Other long term (current) drug therapy; Z88.8 Allergy status to other drugs, medicaments and biological substances
CPT/HCPCS: 36569; C1751; J3490